=== PATIENT | female | born 1995 | race Caucasian/White ===

== ENCOUNTER 2022-07-17 18:58 | Inpatient (IN) ==
[2022-07-17] MEDS ORDERED: LIDOCAINE 1% LOCAL 20 ML VIAL INFIL PRN (19:19)
[2022-07-17] MEDS ORDERED: OXYTOCIN 30 UNITS/500 ML BAG IV PRN (19:19)
--- NOTE | 2022-07-17 19:21 | History & Physical Report ---
Date of Service July 17, 2022 Assessment & Plan (1) Supervision of normal first : Plan: labor, admit History of Present Illness Primary Care Provider: NO PCP INGRID Calculator Estimated Delivery Date Method Current WG Current Estimate 07/19/22 LMP (Certain) 38w 6d LMP: 10/12/21 : 1 Full term: 0 Premature: 0 Total Number of Induced Abortions: 0 Total Number of Spontaneous Abortions: 0 Ectopics: 0 Multiple births: 0 Number of Living Children: 0 Allergies Allergy/AdvReac Type Severity Reaction Status Date / Time No Known Allergies Allergy Verified 07/17/22 19:17 Home Medications Medication Instructions Recorded Confirmed Type prenat.vits,zuhair,jxs-uccs-trvjp 1 tab PO DAILY 01/10/22 07/17/22 History ferrous sulfate 325 mg (65 mg 325 mg PO DAILY 07/17/22 07/17/22 History iron) tablet (Iron (ferrous sulfate)) Patient History Medical History Patient denies significant medical history Surgical History No history of previous surgery S/P wisdom tooth extraction Family History Denies family history of Ovarian cancer Breast cancer Colorectal cancer Social History (Updated 01/10/22 @ 08:56 by Aurea Arnett) Smoking Status: Never smoker marital status: marital status details: Jomar Clinton (24) Current Living Situation: Spouse Current Living Situation Comment: lives with spouse, cat-spouse changing litter current occupational status: unemployed Review of Systems as per Subjective / HPI Physical Exam Constitutional: WD/WN, vitals as above well developed and well nourished Respiratory: normal respiratory effort, lungs clear to auscultation normal respiratory effort Cardiovascular: RRR, no murmur, no edema Gastrointestinal (Abdomen): normal bowel sounds, soft, nontender, no hepatosplenomegaly Coding Level of Care Code None Diagnoses Supervision of normal first Z34.00
[2022-07-17] MEDS: LACTATED RINGER'S 1,000 ML IV PRN ×2 (19:34→21:16)
[2022-07-17 19:58] LABS: Hematocrit (blood only) 33.3 % (34.1-44.9); Hemoglobin 11.8 g/dl (12.0-16.0); Mean Corpuscular Hemoglobin 31.1 pg (25.0-34.0); Mean Corpuscular Hgb Conc 35.4 g/dL (32.0-36.0); Mean Corpuscular Volume 87.9 fL (80.0-100.0); Mean Platelet Volume 10.3 fL (9.4-12.3); Platelet Count 188 K/uL (130-400); RDW Coefficient of Variation 12.2 % (11.5-14.5); RDW Standard Deviation 39.3 fL (36.4-46.3); Red Blood Count 3.79 M/uL (3.93-5.22); White Blood Count 13.81 K/ul (4.8-10.8)
[2022-07-17] MEDS ORDERED: ePHEDrine sulfate 50 MG/ML AMP ONE (20:36)
[2022-07-17] MEDS ORDERED: LIDOCAINE 2%/EPINEPHRINE 1:200,000 20 ML SDV ONE (20:37)
[2022-07-17] MEDS ORDERED: fentaNYL 2MCG/ML ROPIVACAINE 1.25MG/ML 100 ML BAG EPI ONE (20:37)
[2022-07-17] MEDS ORDERED: BUPIVACAINE 0.25% 30 ML VIAL ONE (20:37)
[2022-07-17] MEDS ORDERED: fentaNYL citrate 100 MCG/2 ML VIAL ONE (20:37)
[2022-07-17] MEDS ORDERED: SODIUM CHLORIDE 0.9% INJ 10 ML VIAL ONE (20:37)
--- NOTE | 2022-07-17 21:10 | Anesthesiology Consultation ---
Date of Service July 17, 2022 Assessment & Plan Chart Review Chart Review: Patient NOT seen in Pre Admission Testing and Acceptable Risk for Labor Epidural Consults Requested none ASA ASA2 Proposed Anesthesia Anesthesia Type: Labor Epidural and CSE Risk / Benefits Reviewed With: PT / POA / Parent / Guardian, Accepts Plan and Informed Consent Obtained History Height/Weight Height: 5 ft 10 in Weight: 62.142 kg Allergies Allergy/AdvReac Type Severity Reaction Status Date / Time No Known Allergies Allergy Verified 07/17/22 19:17 Medications Home Medications Medication Instructions Recorded Confirmed Last Taken prenat.vits,zuhair,fkp-[id number]-rtbkm 1 tab PO DAILY 01/10/22 07/17/22 Unknown ferrous sulfate 325 mg (65 mg 325 mg PO DAILY 07/17/22 07/17/22 Unknown iron) tablet (Iron (ferrous sulfate)) Active Medications Generic Name Dose Route Start Last Admin Trade Name Freq PRN Reason Stop Dose Admin Lactated Ringer's 1,000 mls @ 125 mls/hr 07/17/22 19:19 07/17/22 19:34 Lr IV 07/19/22 19:18 999 mls/hr .Q8H PRN Administration L&D Protocol Protocol NPO Date Last Intake of Fluids: 07/17/22 Time Last Intake of Fluids: 20:00 Date Last Intake of Solids: 07/17/22 Time Last Intake of Solids: 17:00 Past Medical History Medical History Patient denies significant medical history Exercise / Class Metabolic Activity II 4-5 Yardwork/Stairs/Walk up hill Past Family History Family History Denies family history of Ovarian cancer Breast cancer Colorectal cancer Past Surgical History Surgical History No history of previous surgery S/P wisdom tooth extraction Past Anesthesia History No Hx of Anesthesia Complications and No Family Hx of Anesthesia Complications History of PONV No Hx of PONV and No Hx of Motion Sickness Social History Smoking Status: Never smoker Hx Alcohol Use: No Hx Substance Use: No substance use type: does not use Review of Systems no chest pain or sob Physical Exam Vital Signs Last Vital Signs Temp 37.6 C H 07/17/22 19:34 Pulse 68 07/17/22 21:06 Resp 18 07/17/22 19:34 BP 115/73 07/17/22 19:34 Pulse Ox 98 07/17/22 21:06 ENMT Mouth: no TMJ abnormality Thyromental Distance: > or= 3.5 Finger Breadths Mallampati Class: II Neck normal visual inspection Respiratory normal respiratory effort Auscultation: lungs clear to auscultation bilaterally Cardiovascular Rate/Rhythm: regular rate and regular rhythm Musculoskeletal Spine: normal cervical ROM Neurologic moves all extremities Psychiatric Orientation: alert and oriented x 3 Testing Laboratory Results 07/17/22 19:35
[2022-07-17] MEDS ORDERED: diphenhydrAMINE 50 MG/ML VIAL IV PRN (21:11)
[2022-07-17] MEDS ORDERED: NALOXONE HCL 1 MG in SODIUM CHLORIDE 0.9% 1000ML 1,000 ML IV PRN (21:11)
[2022-07-17] MEDS ORDERED: NALBUPHINE HCL INJ 10 MG/ML AMP IV PRN (21:11)
[2022-07-17] MEDS ORDERED: ePHEDrine sulfate 50 MG/ML AMP IV PRN (21:11)
[2022-07-17] MEDS ORDERED: NALOXONE HCL 0.4 MG/1 ML VIAL/CARP IV PRN (21:11)
[2022-07-17] MEDS ORDERED: ONDANSETRON INJ 2 MG/ML 2 ML VIAL IV PRN (21:11)
[2022-07-17] MEDS: fentaNYL 2MCG/ML ROPIVACAINE 1.25MG/ML 100 ML BAG EPI PRN (21:31)
[2022-07-18] MEDS: LACTATED RINGER'S 1,000 ML IV PRN (01:38)
[2022-07-18] MEDS: fentaNYL 2MCG/ML ROPIVACAINE 1.25MG/ML 100 ML BAG EPI PRN (04:34)
--- NOTE | 2022-07-18 05:49 | Delivery Summary ---
Vaginal Delivery Summary Date of Service July 18, 2022 Vaginal Delivery Summary Spontaneous vaginal delivery the patient arrived in spontaneous labor at term uncomplicated she was 5 cm on arrival. She did initially have a elevation of the baseline heart rate however after epidural and rupture of membranes this resolved significantly she had good accelerations throughout her labor. She delivered a baby in occiput posterior position clear fluid no nuchal cord baby was delivered by gentle traction ensuring the anterior shoulder gently passed under the symphysis pubis. Live vigorous female no excessive force Cord clamped and cut cord gases obtained cord blood obtained placenta removed with gentle traction IV Pitocin started uterine tone improved second- degree tear repaired with 3-0 Vicryl in the usual fashion sponge and instrument counts correct estimated blood loss 200 mL
[2022-07-18] MEDS ORDERED: oxyCODONE/ACETAMINOPHEN 5mg/325mg TAB PO PRN (06:03)
[2022-07-18] MEDS ORDERED: OXYTOCIN 30 UNITS/500 ML BAG IV PRN (06:03)
[2022-07-18] MEDS ORDERED: DIPHTHERIA/TETANUS/PERTUSSIS 0.5 ML SYR/VIAL IM ONE (06:03)
[2022-07-18] MEDS ORDERED: HYDROCORTISONE ACETATE 25 MG SUPP PR PRN (06:03)
[2022-07-18] MEDS ORDERED: BENZOCAINE 20% AER SPR 82.5 GM CAN EXT PRN (06:03)
[2022-07-18] MEDS ORDERED: ACETAMINOPHEN 325 MG TAB PO PRN (06:03)
[2022-07-18 06:14] LABS: Base Excess Cord Venous Blood -5.5 mEq/L (-7.7-1.9); Cord Venous Blood HCO3 20 mmol/L (18.4-26.8); Cord Venous Blood PCO2 39 mmHg (30.4-57.2); Cord Venous Blood PO2 25 mmHg (14.1-43.3); Cord Venous Blood pH 7.32 (7.20-7.44); O2 Saturation Cord Venous Bld < 60.0 % (<68)
[2022-07-18 06:16] LABS: Base Excess Cord Arterial Bld -6.8 mEq/L (-9-1.8); CO2 Cord Arterial Blood 55 mmHg (39.1-73.5); HCO3 Cord Arterial Blood 22 mmol/L (19.7-28.5); Oxygen Sat Cord Arterial Blood < 60.0 % (<60); PO2 Cord Arterial Blood 15 mmHg (4.1-31.7); pH Cord Arterial Blood 7.21 (7.1-7.38)
--- NOTE | 2022-07-18 07:58 | Anesthesia Procedure Note ---
Date of Service July 18, 2022 Anesthesia Post Epidural Note Vital Signs Vital Signs: Temp Pulse Resp BP Pulse Ox 99.3 F 83 18 112/59 L 98 07/18/22 05:49 07/18/22 07:46 07/18/22 06:48 07/18/22 07:46 07/18/22 05:43 Notes Mental Status: alert / awake / arousable and participated in evaluation Nausea / Vomiting: adequately controlled Pain: adequately controlled Airway Patency, RR, SpO2: stable & adequate BP & HR: stable & adequate Hydration State: stable & adequate Neuraxial Anesthesia: was administered and sensory block is resolving Anesthetic Complications: no major complications apparent and Pt Satisfied with anesthetic care Epidural: Removed without complications and With tip intact
[2022-07-18] MEDS: PRENATAL VITAMIN 1 TAB PO SCH (09:17)
[2022-07-18] MEDS: DOCUSATE SODIUM 100 MG CAP PO SCH ×2 (09:17→19:44)
[2022-07-18] MEDS: IBUPROFEN 600 MG TAB PO PRN (11:38)
[2022-07-19] MEDS: IBUPROFEN 600 MG TAB PO PRN ×3 (03:48→20:24)
--- NOTE | 2022-07-19 05:39 | Obstetrical Progress Note ---
Date of Service <Moni MartinezAndre Wick DO - Last Filed: 07/19/22 06:24> July 19, 2022 Assessment & Plan <Moni MartinezAndre Wick DO - Last Filed: 07/19/22 06:24> (1) care following vaginal delivery: Patient is PPD 1 s/p and doing well. - Eating well, voiding well, ambulating well - Vitals reviewed and within normal limits - Pain well controlled with analgesics - OOB, ambulation, diet progression as tolerated - Blood type: A+, GBS neg, rubella immune - Plan to discharge tomorrow - After discharge, 6 week follow up with Dr. Jo <Shelby Ndiaye MD - Last Filed: 07/19/22 07:16> (1) care following vaginal delivery: Subjective <Moni HansonDO barb - Last Filed: 07/19/22 06:24> Patient is a 26 yo female who is now PPD #1 following spontaneous vaginal delivery at 39+6 weeks. Reports feeling well this morning. She denies abdominal cramping and 0/10 pain while laying in bed well managed on analgesics. Voiding without issue. Tolerating regular meals overnight and able to ambulate some. She has passed gas but no bowel movements. Persistent lochia with some improvement this morning. Currently breast feeding with latching difficulties. Nurses are helping with breast feeding techniques. She explains that sometimes when she stands up and walks around she feels that her heart is pounding. We talked about blood loss during delivery and orthostatic hypotension. Encouraged pt to go from lying to sitting to standing to reduce these symptoms. Pt denies dizziness, lightheadedness, and syncope. Review of Systems Denies fever, chills, sweats. Denies SOB, difficulty breathing, chest pain, palpitations, and chest pressure. Denies breast pain. Denies dysuria. Denies headache or changes in vision. Physical Exam <Moniluther Wick DO - Last Filed: 07/19/22 06:24> General: Alert and oriented. No acute distress. CV: Regular rate and rhythm. No murmurs. Respiratory: CTA bilaterally. No rhonchi, wheezes, or crackles. No increased work of breathing. Abdomen: Positive bowel sounds. Soft, nontender, non distended. Uterus: Fundus firm and palpable 2 cm below the umbilicus. Lower extremities: No LE edema. No deep calf pain. Neyda's negative bilaterally. Results & Data ([facility]) <Moni Wick DO - Last Filed: 07/19/22 06:24> Vital Signs (Past 12 Hours) Vital Signs Temp Pulse Resp BP Pulse Ox O2 Del Method 07/19/22 03:45 36.9 C 93 H 16 109/65 97 Room Air 07/19/22 00:17 37.3 C 103 H 14 102/61 98 Room Air 07/18/22 19:40 36.6 C 84 16 106/65 98 Room Air <Shelby Ndiaye MD - Last Filed: 07/19/22 07:16> Co-Signing Physician Notes Resident Physician Supervision Note: I interviewed and examined the patient. Discussed with Dr. Wick and agree with findings and plan as documented in the note. Any exceptions or clarifications are listed here: [ ] Documented By: Shelby Ndiaye MD, FACOG Resident Activity Tracking <Moni Wick DO - Last Filed: 07/19/22 06:24> Resident Involvement: Resident Care Provided Care Provided: OB Delivery
[2022-07-19 06:37] LABS: Hematocrit (blood only) 26.6 % (34.1-44.9); Hemoglobin 9.3 g/dl (12.0-16.0); Mean Corpuscular Hemoglobin 31.4 pg (25.0-34.0); Mean Corpuscular Volume 89.9 fL (80.0-100.0); Mean Platelet Volume 9.9 fL (9.4-12.3); Platelet Count 160 K/uL (130-400); RDW Coefficient of Variation 12.6 % (11.5-14.5); RDW Standard Deviation 41.2 fL (36.4-46.3); Red Blood Count 2.96 M/uL (3.93-5.22); White Blood Count 14.03 K/ul (4.8-10.8)
[2022-07-19] MEDS: DOCUSATE SODIUM 100 MG CAP PO SCH ×2 (07:43→20:24)
[2022-07-19] MEDS: PRENATAL VITAMIN 1 TAB PO SCH (07:43)
[2022-07-19] MEDS ORDERED: bisacodyL 5 MG TABEC PO SCH (20:00)
[2022-07-20] MEDS ORDERED: bisacodyL 10 MG SUPP PR PRN (06:00)
--- NOTE | 2022-07-20 06:20 | Obstetrical Progress Note ---
Date of Service <Moni Feng DO [place] - Last Filed: 07/20/22 06:47> July 20, 2022 Assessment & Plan <Moni HansonDO barb - Last Filed: 07/20/22 06:47> (1) care following vaginal delivery: Patient is PPD 2 s/p and doing well. - Eating well, voiding well, ambulating well - Vitals reviewed and within normal limits - Pain well controlled with analgesics - OOB, ambulation, diet progression as tolerated - Blood type: O+, GBS neg, rubella immune - Plan to discharge today - After discharge, 6 week follow up with Dr. Jo <Chasity Jones MD, FACOG - Last Filed: 07/20/22 09:05> (1) care following vaginal delivery: Subjective <Moni HansonDO barb - Last Filed: 07/20/22 06:47> Patient is a 26 yo female who is now PPD #2 following spontaneous vaginal delivery at 39+6 weeks. Reports feeling well this morning. She is no longer feeling her heart pound when she stands up. She endorses abdominal cramping and minimal pain well managed on ibuprofen. Voiding without problems. Tolerating regular meals overnight and able to ambulate some. She has passed gas but had no bowel movements. Persistent lochia with some improvement this morning. Currently breast feeding. Review of Systems Denies fever, chills, sweats. Denies SOB, difficulty breathing, chest pain, palpitations, and chest pressure. Denies breast pain. Denies dysuria. Denies headache or changes in vision. Physical Exam <Moni Feng DO [place] - Last Filed: 07/20/22 06:47> General: Alert and oriented. No acute distress. CV: Regular rate and rhythm. No murmurs. Respiratory: CTA bilaterally. No rhonchi, wheezes, or crackles. No increased work of breathing. Abdomen: Positive bowel sounds. Soft, nontender, non distended. Uterus: Fundus firm and palpable 2 cm below the umbilicus. Lower extremities: No LE edema. No deep calf pain. Neyda's negative bilaterally. Results & Data ([facility]) <Moni Ping Wick DO - Last Filed: 07/20/22 06:47> Vital Signs (Past 12 Hours) Vital Signs Temp Pulse Resp BP Pulse Ox O2 Del Method 07/19/22 22:58 36.6 C 80 18 111/61 97 Room Air 07/19/22 19:02 36.6 C 78 18 112/76 98 Room Air <Chasity Jones MD, FACOG - Last Filed: 07/20/22 09:05> Co-Signing Physician Notes Resident Physician Supervision Note: I interviewed and examined the patient. Discussed with Dr. Wick and agree with findings and plan as documented in the note. Any exceptions or clarifications are listed here: [None] Documented By: Chasity Jones MD, FACOG Resident Activity Tracking <Moni Wick DO - Last Filed: 07/20/22 06:47> Resident Involvement: Resident Care Provided Care Provided: OB Delivery
[2022-07-20] MEDS: PRENATAL VITAMIN 1 TAB PO SCH (07:50)
[2022-07-20] MEDS: DOCUSATE SODIUM 100 MG CAP PO SCH (07:50)
[2022-07-20] MEDS: IBUPROFEN 600 MG TAB PO PRN (07:51)
[2022-07-20 10:06] LABS: Hematocrit (blood only) 27.8 % (34.1-44.9); Hemoglobin 9.7 g/dl (12.0-16.0)
== END 2022-07-20 15:30 | disposition home or self-care (01) | DRG 807 ==
LOC: OPB 18:58 → 4S1 18:59 → 4E2 07-18 08:53
DX: Z3A.39 39 weeks gestation of pregnancy; O70.1 Second degree perineal laceration during delivery; Z37.0 Single live birth